=== PATIENT | female | born 1975 | race Caucasian/White ===

== ENCOUNTER 2017-03-31 14:30 | Outpatient (CLI) | payer BC ==
--- NOTE | 2017-03-31 18:56 | MRI ---
MRI CERVICAL SPINE NONCONTRAST: Date: 03-31-17 History: 41-year-old female with cervicalgia, M54.2 Comparison: None. FINDINGS: There is no Chiari I malformation. The cervical spinal cord is normal in size and signal. The bone ma rrow signal is normal. The vertebral body heights and disc spaces are maintained. No prevertebral sof t tissue swelling. No high grade facet arthrosis at any level. No central spinal canal stenosis. No n eural foraminal stenosis. No root impingement or cord impingement at any level. No focal disc herniat ion at any level. There is slight reversal of the cervical curvature. IMPRESSION: 1. Mild reversal of curvature, which could be due to positioning or muscle spasm. 2. Otherwise normal. POS: NESS
== END 2017-03-31 14:31 | disposition home or self-care (01) ==
LOC: SCSMRI 14:30
PROVIDERS: ATTEND Otolaryngology Otolaryngic Allergy
DX: M54.2 Cervicalgia (principal); M43.9 Deforming dorsopathy, unspecified
CPT/HCPCS: 72141

== ENCOUNTER 2018-03-11 13:05 | Outpatient (CLI) | payer BC | END 2018-03-11 13:06 | disposition home or self-care (01) | LOC: BICMAMMO 13:05 | PROVIDERS: ATTEND Obstetrics & Gynecology | DX: Z12.31 Encounter for screening mammogram for malignant neoplasm of breast (principal); R92.1 Mammographic calcification found on diagnostic imaging of breast; Z80.3 Family history of malignant neoplasm of breast | CPT/HCPCS: 77063; 77067 ==

== ENCOUNTER 2022-12-16 10:53 | Outpatient (CLI) | payer BC | END 2022-12-16 10:54 | disposition home or self-care (01) | LOC: RAD 10:53 | PROVIDERS: ATTEND Internal Medicine Gastroenterology | DX: R13.10 Dysphagia, unspecified (principal); K21.9 Gastro-esophageal reflux disease without esophagitis | CPT/HCPCS: 74230 ==